=== PATIENT | male | born 1965 | race Caucasian/White ===

== ENCOUNTER → 2020-10-15 19:24 | Outpatient (ROUT) | payer OTHER, SELFPAY ==
[2020-10-15 20:33] LABS: COVID19 - ORCAS (NP or Nasal) Negative (Negative)
== END ==
PROVIDERS: PCP Family Medicine; Visit Provider Surgery
DX: Z20.822 Contact with and (suspected) exposure to COVID-19 (principal)
CPT/HCPCS: U0003

== ENCOUNTER 2020-10-18 11:41 | Day surgery (SDC) | payer OTHER, SELFPAY ==
[2020-10-18] VITALS (7 sets, daily range): BP systolic 104–129; BP diastolic 58–72; PULSE 60–76; RESP 10–18; TEMP 36.6–37.1; O2SAT 95–98
[2020-10-18] MEDS: LACTATED RINGERS 1,000 ML 200 ML IV (12:15)
--- NOTE | 2020-10-18 13:00 | PM.PREOP ---
Pre-operative Note Interval Note History & Physical reviewed/Exam performed by Physician: Yes Changes to H&P: No
[2020-10-18] MEDS: fentaNYL 250 MCG/5 ML INJ IV (13:24)
[2020-10-18] MEDS: MIDAZOLAM 5 MG/5 ML VIAL IV (13:31)
--- NOTE | 2020-10-18 13:42 | P.OP.ENDO_ITS ---
Operative Date/Time/Diagnoses Date of procedure: 10/18/20 Time of procedure: 13:43 Pre-op diagnosis: Rectal bleeding Post-op diagnosis: same Procedure & Clinicians Study performed: Colonoscopy and hemorrhoidal banding Same procedure as scheduled: Yes Indications: Rectal bleeding Surgeon: Nba Reeves Procedure Notes Procedure in detail: Medications: Conscious sedation using 6mg IV midazolam and 200mcg IV of fentanyl The history and physical was performed/updated and the patient is ASA class is 1. The procedure was discussed in detail with the patient. Potential risks complications including infection, bleeding, missed diagnosis, perforation, need for surgery, and were explained. Their questions were answered and informed consent was obtained. Patient was brought to the procedure room and placed standard monitoring eq uipment. The patient's vital signs were monitored continuously throughout the entire procedure. Prior to starting time-out was performed. The patient was placed in the left lateral recumbent position. Procedural sedation was administered. Examination began with a thorough inspection of the perianal area there was no evidence of fissures, fistulae, external hemorrhoids or cutaneous malignancy. The colonoscopy scope was then placed into the anal canal and was advanced to the cecum, which was identified by the ileocecal valve, the appendiceal orifice and the confluence of the taenia. The scope was then slowly withdrawn examining colon thoroughly in all directions, irrigating it of any residual stool. 1. No masses or polyps 2. Grade 2 internal hemorrhoids Hemorrhoidal banding was performed of the right anterior and posterior pedicles. Pedicle was grasped elevated and then doubly ligated at its base. The patient tolerated the procedure well. They will be discharged once criteria are met. The prep was of good/excellent quality. The withdrawl time was 7 minutes. The sedation time was 30 minutes. Specimen(s): none sent Complications: none Impression: Normal colonoscopy Post-procedure Recommendations: Colonscopy in 10 years Disposition: same day surgery
== END 2020-10-18 14:18 | disposition home or self-care (01) ==
PROVIDERS: Referring Provider Surgery; Visit Provider Surgery
PROC: 0DJD8ZZ Inspection of Lower Intestinal Tract, Via Natural or Artificial Opening Endoscopic (ICD-10-PCS; CPT 45378; principal; 2020-10-18 13:00)
DX: K62.5 Hemorrhage of anus and rectum (principal); K64.1 Second degree hemorrhoids
CPT/HCPCS: 45378; 46221; 99152; 99153; J2250; J3010

== ENCOUNTER → 2020-12-31 09:48 | Outpatient (CLI) | payer OTHER, SELFPAY ==
[2020-12-31 21:44] LABS: COVID19 - ORCAS (NP or Nasal) Negative (Negative)
== END ==
PROVIDERS: PCP Physician Assistant; Visit Provider Physician Assistant
DX: Z20.822 Contact with and (suspected) exposure to COVID-19 (principal)
CPT/HCPCS: U0003